=== PATIENT | female | born 1945 | race Caucasian/White ===

== ENCOUNTER 2023-02-14 13:44 | Emergency (ER) | payer MEDICARE, SELFPAY ==
[2023-02-14] VITALS (9 sets, daily range): BP systolic 119–145; BP diastolic 70–84; PULSE 75–100; RESP 12–18; TEMP 36.5; O2SAT 91–98; BMI 32.3
[2023-02-14 14:57] LABS: Basophils % 0.2 %; Hematocrit 43.2 % (37.0-47.0); Hemoglobin 13.6 g/dL (11.5-15.3); Lymphocytes # 1.1 10^3/uL (0.8-4.8); Lymphocytes % 5.6 %; Mean Corpuscular HGB Conc 31.5 g/dL (30.0-36.0); Mean Corpuscular Hemoglobin 25.6 pg (28.0-34.0); Mean Corpuscular Volume 81.4 fl (81-99); Mean Platelet Volume 9.7 fL (7.4-10.4); Monocytes # 0.8 10^3/uL (0.2-0.9); Neutrophils # 17.35 10^3/uL (1.8-7.7); Neutrophils % 89.6 %; Nucleated Red Blood Cells % 0 %; Platelet Count 421 10^3/cmm (130-400); Red Blood Count 5.31 10^6/uL (4.1-5.3); Red Cell Distribution Width 15.2 % (12.1-15.1); White Blood Count 19.4 10^3/uL (4.0-10.0)
[2023-02-14 15:21] LABS: Alanine Aminotransferase 10 U/L (0-33); Albumin Level 3.7 g/dL (3.5-5.2); Alkaline Phosphatase 121 U/L (35-105); Anion Gap 18.5 (5-19); Aspartate Amino Transferase 21 U/L (0-32); Blood Urea Nitrogen 35 mg/dL (8-23); Calcium 9.5 mg/dL (8.5-10.5); Carbon Dioxide 32 mmol/L (22-29); Chloride 91 mmol/L (98-107); Globulin 3.6 g/dL (1.3-4.6); Glucose 132 mg/dL (65-115); Lipase 36 U/L (13-60); Osmolality Calculated 296 mOsm/kg (285-295); Potassium 3.5 mmol/L (3.5-5.1); Sodium 138 mmol/L (136-145); Total Bilirubin 0.9 mg/dL (0.15-1.2); Total Protein 7.3 g/dL (6.6-8.7)
--- NOTE | 2023-02-14 15:27 | W.ED.ABDPA2 ---
HPI - Abdominal Pain General: Chief Complaint: Nausea/Vomiting/Diarrhea Stated Complaint: n/v/constipation Time Seen by Provider: 02/14/23 15:27 History of Present Illness: Ms. Silva is a 78-year-old lady with history of back pain and history of back surgery as well as hypertension presenting to the emergency department for nausea, vomiting, decreased urine and stool output as well as abdominal pain. Onset of symptoms was subacute without known specific provoking factor. She has had numerous episodes of nonbloody emesis that has been dark brown and sometimes bright green. She has not been able to tolerate any p.o. intake including her medications. She notes intermittent sharp periumbilical and epigastric pain. Overall course of symptoms has worsened. Intensity is moderate to severe. No other specific changes in health, exacerbating, or alleviating factors identified. Onset (ago): day(s) Pain Consistency: intermittent Location: Epigastric and Periumbilical Severity: moderate Quality: sharp Radiation: none Migration to: no migration Exacerbating factors: eating and vomiting Relieving factors: nothing Associated Symptoms: Reports nausea, poor appetite and vomiting; Denies fever(s) Review of Systems General: Reports: 10 or more systems reviewed and unremarkable except in HPI and below Const: Denies: fever(s) GI: Reports: nausea and vomiting [facility] PFSH: Medical History (Updated 02/23/23 @ 00:01 by BHUPINDER Snow) Hypertension Surgical History (Updated 02/14/23 @ 15:45 by Roby Ash MD) History of back surgery Physical Exam Const: COMMON NORMALS: alert GENERAL APPEARANCE: cooperative and well developed HENMT: COMMON NORMALS: normocephalic and atraumatic HEAD & SCALP: normocephalic and atraumatic Eye: COMMON NORMALS: conjunctivae normal CONJUNCTIVA: Yes conjunctivae normal SCLERA: sclerae normal Neck/C-Spine: COMMON NORMALS: supple GENERAL: Yes trachea midline Resp: COMMON NORMALS: normal respiratory effort EFFORT & INSPECTION: Yes able to speak in complete sentences Cardio: COMMON NORMALS: regular rate and regular rhythm RATE: regular rate RHYTHM: regular rhythm GI: COMMON NORMALS: Soft to palpation PALPATION: Yes Soft to palpation, Yes Tenderness to palpation present (GI), No Guarding due to palpation present (GI) and No Rigid due to palpation Extremity: GENERAL: Yes normal exam except as noted and No edema Neuro: COMMON NORMALS: moves all extremities SENSORIUM/ORIENTATION: Yes alert and No Orientation impaired Psych: COMMON NORMALS: mental status grossly normal and Normal thought process present THOUGHT PROCESS: Normal thought process present Course Vital Signs: Vital signs: Vital Signs Temperature 97.7 F 02/14/23 14:10 Pulse Rate 74 02/15/23 18:43 Respiratory Rate 18 02/15/23 08:35 Blood Pressure 144/68 02/15/23 18:43 Pulse Oximetry 94 02/15/23 18:43 Oxygen Delivery Me thod 02/15/23 18:43 Oxygen Flow Rate 2 02/15/23 10:17 MDM - Abdominal Pain Medical Decision Making 78-year-old lady presenting with nausea and vomiting as well as abdominal pain in the context of recent surgery. She is nontoxic in appearance, she has abdominal tenderness though no evidence of acute surgical abdomen. Labs notable for leukocytosis, normal hemoglobin, elevated platelet count which is likely reactive. Metabolic panel with likely evidence of dehydration including elevated creatinine above baseline. Lactic acid is normal. Urinalysis with squamous epithelial contamination, likely not infected. COVID-negative. CT abdomen and pelvis notes moderate grade mid small bowel obstruction and pneumobilia with gallbladder wall thickening. No discrete stones are identified. Ultrasound concerns cholelithiasis with gallbladder wall thickening though somewhat intermediate in nature. During ED course patient treated with antiemetic, analgesia, IV fluids, empiric antibiotics. She requires further evaluation of pneumobilia and possible biliary abnormality/pathology that exceeds her capability as we do not have GI service or ERCP capability. NG tube placed. Patient excepted as transfer to [facility], plan callback with bed availability. The results of ED evaluation were discussed with the patient including plan for transfer due to requirement for level of care not available if discharged to prevent significant worsening/deterioration. Patient agreeable with plan. Discussed with hospitalist service who was agreeable to admit patient. Medical Records I reviewed the patient's medical records. Lab Data I reviewed the patient's lab results. 02/14/23 14:40 02/14/23 14:40 Labs/Radiology: Radiology Impressions Abdomen/Pelvis CT 02/14/23 15:50 IMPRESSION: Moderate grade mid small bowel obstruction etiology of which is unclear. However in view of the unexplained pneumobilia and thickened gallbladder wall the possibility of gallstone ileus should be considered. ADDENDUM: 02/14/23 0187 THIS REPORT CONTAINS FINDINGS THAT MAY BE CRITICAL TO PATIENT CARE. The findings were verbally communicated via telephone conference with Roby Ash at 5:29 PM CDT on 02/14/2023. The findings were acknowledged and understood. Gallbladder Ultrasound 02/14/23 17:32 IMPRESSION: 1. Cholelithiasis with gallbladder wall thickening to 4.7 mm, may reflect an evolving cholecystitis in the appropriate clinical setting, nuclear medicine HIDA scan could further evaluate this as clinically indicated. 2. Echogenic structures in the liver likely reflecting air density/pneumobilia as seen on recent CT scan. Chest X-Ray 02/14/23 20:15 IMPRESSION: 1. Enteric tube tip below the left diaphragm over the gastric bubble. 2. Bibasilar atelectasis. Laboratory Results WBC 13.4 10^3/uL (4.0-10.0) H 02/15/23 16:15 RBC 4.74 10^6/uL (4.1-5.3) 02/15/23 16:15 Hgb 12.5 g/dL (11.5-15.3) 02/15/23 16:15 Hct 40.0 % (37.0-47.0) 02/15/23 16:15 MCV 84.4 fl (81-99) 02/15/23 16:15 MCH 26.4 pg (28.0-34.0) L 02/15/23 16:15 MCHC 31.3 g/dL (30.0-36.0) 02/15/23 16:15 RDW 15.3 % (12.1-15.1) H 02/15/23 16:15 Plt Count 289 10^3/cmm (130-400) D 02/15/23 16:15 MPV 9.9 fL (7.4-10.4) 02/15/23 16:15 Neut % (Auto) 84.3 % 02/15/23 16:15 Lymph % (Auto) 6.9 % 02/15/23 16:15 Leon % (Auto) 7.1 % 02/15/23 16:15 Eos % (Auto) 1.0 % 02/15/23 16:15 Baso % (Auto) 0.4 % 02/15/23 16:15 Neut # (Auto) 11.33 10^3/uL (1.8-7.7) H 02/15/23 16:15 Lymph # (Auto) 0.9 10^3/uL (0.8-4.8) 02/15/23 16:15 Leon # (Auto) 1.0 10^3/uL (0.2-0.9) H 02/15/23 16:15 Eos # (Auto) 0.1 10^3/uL (0.0-0.8) 02/15/23 16:15 Baso # (Auto) 0.1 10^3/uL (0.0-0.1) 02/15/23 16:15 Nucleated RBC % (auto) 0 % 02/15/23 16:15 Nucleated RBCs # 0.0 /100WBC 02/15/23 16:15 Sodium 141 mmol/L (136-145) 02/15/23 16:15 Potassium 3.3 mmol/L (3.5-5.1) L 02/15/23 16:15 Chloride 99 mmol/L (98-107) 02/15/23 16:15 Carbon Dioxide 30 mmol/L (22-29) H 02/15/23 16:15 Anion Gap 15.3 (5-19) 02/15/23 16:15 BUN 49 mg/dL (8-23) H 02/15/23 16:15 Creatinine 2.4 mg/dL (0.5-0.9) H 02/15/23 16:15 GFR Calculation Not Reportable 02/15/23 16:15 Glucose 108 mg/dL (65-115) 02/15/23 16:15 Calculated Osmolality 306 mOsm/kg (285-295) H 02/15/23 16:15 Lactic Acid 1.2 mmol/L (0.5-2.2) 02/14/23 19:00 Calcium 8.1 mg/dL (8.5-10.5) L 02/15/23 16:15 Total Bilirubin 0.9 mg/dL (0.15-1.2) 02/14/23 14:40 AST 21 U/L (0-32) 02/14/23 14:40 ALT 10 U/L (0-33) 02/14/23 14:40 Alkaline Phosphatase 121 U/L (35-105) H 02/14/23 14:40 Total Protein 7.3 g/dL (6.6-8.7) 02/14/23 14:40 Albumin 3.7 g/dL (3.5-5.2) 02/14/23 14:40 Globulin 3.6 g/dL (1.3-4.6) 02/14/23 14:40 Lipase 36 U/L (13-60) 02/14/23 14:40 Urine Color Yellow (Yellow) 02/14/23 16:45 Urine Appearance Cloudy (CLEAR) A 02/14/23 16:45 Urine pH 5 (5-7) 02/14/23 16:45 Ur Specific Cameron 1.030 (1.005-1.030) 02/14/23 16:45 Urine Protein 2+ (Negative) H 02/14/23 16:45 Urine Glucose (UA) Norm (Normal) 02/14/23 16:45 Urine Ketones 1+ (Negative) H 02/14/23 16:45 Urine Blood Trace (Negative) H 02/14/23 16:45 Urine Nitrate Negative (Negative) 02/14/23 16:45 Urine Bilirubin Neg (Negative) 02/14/23 16:45 Urine Urobilinogen Norm mg/dL (Negative) 02/14/23 16:45 Ur Leukocyte Esterase 2+ (Negative) H 02/14/23 16:45 Urine RBC 0-4 /hpf (0-2) H 02/14/23 16:45 Urine WBC 25-40 /hpf (0-5) H 02/14/23 16:45 Ur Squamous Epith Cells 10-15 /hpf (0-5) H 02/14/23 16:45 Amorphous Sediment Not Reportable 02/14/23 16:45 Urine Bacteria Trace /hpf (NONE) 02/14/23 16:45 Hyaline Casts 10-15 /lpf H 02/14/23 16:45 SARS-CoV-2 Ag (Rapid) negative (Negative) 02/14/23 18:30 Discharge Plan Discharge Patient Disposition: Xfer Short-Term Hosp Clinical Impression: SBO (small bowel obstruction), Pneumobilia, PARKER (acute kidney injury) Condition: Stable Referrals: Mj Jimenes DO [Primary Care Provider] - Coding Level of Care Code ED Podiatric Foot And Ankle Specialist for Chg Fwd
--- NOTE | 2023-02-14 15:33 | PC.NURSE ---
in room with patient and this nurse.
--- NOTE | 2023-02-14 15:45 | PC.PHAR ---
PT STATES SHE TAKES CARE OF HER OWN MEDICATIONS-EXT MED HISTORY SHOWS BYSTOLIC 20MG DAILY LAST FILLED 10/11/22 90D/S-ROGELIO STATES THIS RX ON 02/12/23 PT STATES STILL TAKING
--- NOTE | 2023-02-14 15:50 | CTR_ITS ---
PROCEDURE INFORMATION: Exam: CT Abdomen And Pelvis Without Contrast Exam date and time: 02/14/2023 4:32 PM Age: 78 years old Clinical indication: Abdominal pain; Generalized; Additional info: N/v, abd pain, chet TECHNIQUE: Imaging protocol: Computed tomography of the abdomen and pelvis without contrast. Radiation optimization: All CT scans at this facility use at least one of these dose optimization techniques: automated exposure control; mA and/or kV adjustment per patient size (includes targeted exams where dose is matched to clinical indication); or iterative reconstruction. REPORTING DATA: Count of CT and Cardiac NM exams in prior 12 months: This patient has received 0 known CTs and 0 known cardiac nuclear medicine studies in the 12 months prior to the current study. COMPARISON: No relevant prior studies available. RADIATION DOSE METRICS: Total DLP (mGy-cm): 711.84 FINDINGS: Lungs: Mild interstitial lung changes and minor atelectatic changes at the lung bases. Liver: Normal. No mass. Gallbladder and bile ducts: Gallbladder is contracted with ill-defined thickening of the gallbladder wall and a small amount of air within the gallbladder lumen. In addition there is mild-moderate amount of pneumobilia within the biliary tree. Constellation of findings raises concern for gallstone ileus although an obstructing calcified gallstone cannot be identified where the transition point appears to be located. Pancreas: Normal. No ductal dilation. Spleen: Normal. No splenomegaly. Adrenal glands: Normal. No mass. Kidneys and ureters: Normal. No hydronephrosis. Stomach and bowel: There is evidence of a moderate grade mid small bowel obstruction etiology of which is unclear. Transition point difficult to identify with confidence but likely resides near the midline in the lower abdomen below the level of the umbilicus. No evidence of small bowel volvulus. No obstructing calcified gallstone detected. Scattered diverticula large bowel without evidence of diverticulitis. Appendix: No evidence of appendicitis. Intraperitoneal space: See Stomach and bowel finding. Vasculature: Unremarkable. No abdominal aortic aneurysm. Lymph nodes: Unremarkable. No enlarged lymph nodes. Urinary bladder: Unremarkable as visualized. Reproductive: Uterus has been removed. Bones/joints: Unremarkable. No acute fracture. Soft tissues: Unremarkable. CT/CT abdomen pelvis wo con [id number] IMPRESSION: Moderate grade mid small bowel obstruction etiology of which is unclear. However in view of the unexplained pneumobilia and thickened gallbladder wall the possibility of gallstone ileus should be considered.
[2023-02-14] MEDS: ondansetron 2 mg/ML SDV 2 mL 4 MG IVP (15:59)
[2023-02-14] MEDS: morphine 4 mg/mL SDV 1 mL IVP ×2 (15:59→20:08)
[2023-02-14] MEDS: sodium chloride 0.9% 1,000 ML 999 ML IV (15:59)
--- NOTE | 2023-02-14 17:32 | USR_ITS ---
PROCEDURE INFORMATION: Exam: US Abdomen, Limited; Right Upper Quadrant Exam date and time: 02/14/2023 5:48 PM Age: 78 years old Clinical indication: Abdominal pain; Patient HX: N+v, decrease urine ouput, decreased stool output, periumbilical pain x 5 days. ; Additional info: Pneumobilia on CT TECHNIQUE: Imaging protocol: Real time ultrasound of the abdomen with image documentation. Limited exam focused on the right upper quadrant. COMPARISON: CT abdomen pelvis wo con [id number] 02/14/2023 4:32 PM FINDINGS: Liver: Echogenic structures in the liver likely reflecting air density/pneumobilia as seen on recent CT scan. Gallbladder: Cholelithiasis with gallbladder wall thickening to 4.7 mm, may reflect an evolving cholecystitis in the appropriate clinical setting, nuclear medicine HIDA scan could further evaluate this as clinically indicated. Biliary ducts: Normal. No stones. No dilation. Pancreas: Visualized pancreas is unremarkable. Right kidney: Normal. No mass. No hydronephrosis. US/US gall bladder [id number] IMPRESSION: 1. Cholelithiasis with gallbladder wall thickening to 4.7 mm, may reflect an evolving cholecystitis in the appropriate clinical setting, nuclear medicine HIDA scan could further evaluate this as clinically indicated. 2. Echogenic structures in the liver likely reflecting air density/pneumobilia as seen on recent CT scan.
[2023-02-14 17:33] LABS: Blood Urine Trace (Negative); Glucose Urine UA Norm (Normal); Ketones Urine 1+ (Negative); Nitrate Urine Negative (Negative); Protein Urine 2+ (Negative); Urine Appearance Cloudy (CLEAR); Urine Color Yellow (Yellow); pH Urine 5 (5-7)
[2023-02-14 17:34] LABS: Add Urine Microscopic? YES; Bilirubin Urine Neg (Negative); Leukocyte Esterase Urine 2+ (Negative); Urobilinogen Urine Norm (Negative)
[2023-02-14 17:35] LABS: Bacteria Urine TRACE /hpf; RBC Urine 0-4 /hpf (0-2); WBC Urine 25-40 /hpf (0-5)
[2023-02-14 17:36] LABS: Add Urine Culture? Yes
[2023-02-14 19:20] LABS: SARS Covid-2 Antigen negative (Negative)
[2023-02-14 19:35] LABS: Lactic Sepsis W/Reflex 1.2 mmol/L (0.5-2.2)
[2023-02-14] MEDS: piperacillin-tazobactam 4.5 GM in sodium chloride 0.9% (plus) 50 ML IV (19:38)
--- NOTE | 2023-02-14 20:15 | XRR_ITS ---
PROCEDURE INFORMATION: Exam: XR Chest Exam date and time: 02/14/2023 8:29 PM Age: 78 years old Clinical indication: Device placement; Ng tube; Additional info: Ng tube placement TECHNIQUE: Imaging protocol: Radiologic exam of the chest. Views: 1 view. COMPARISON: CT abdomen pelvis wo con [id number] 02/14/2023 4:32 PM FINDINGS: Tubes, catheters and devices: Enteric tube tip below the left diaphragm over the gastric bubble. Lungs: Bibasilar atelectasis. Pleural spaces: Unremarkable. No pleural effusion. No pneumothorax. Heart/Mediastinum: Unremarkable. No cardiomegaly. Bones/joints: Unremarkable. XR/XR chest 1V portable [id number] IMPRESSION: 1. Enteric tube tip below the left diaphragm over the gastric bubble. 2. Bibasilar atelectasis.
[2023-02-15] VITALS (11 sets, daily range): BP systolic 116–148; BP diastolic 52–87; PULSE 68–82; RESP 12–18; O2SAT 93–95
[2023-02-15] MEDS: sodium chloride 0.9% 1,000 ML 125 ML IV (01:27)
[2023-02-15] MEDS: morphine 4 mg/mL SDV 1 mL IVP ×3 (01:33→19:13)
[2023-02-15] MEDS: piperacillin-tazobactam 4.5 GM in sodium chloride 0.9% (plus) 50 ML IV ×3 (04:15→20:28)
--- NOTE | 2023-02-15 08:30 | DCPLANNER ---
called [facility] to see about an ete for a bed. I spoke with Enedelia at the transfer center and she advised they are waiting on some discharges today around 12-1pm.
--- NOTE | 2023-02-15 12:57 | DCPLANNER ---
CALLED [facility] (LALITHA) STILL NO BED AT THIS TIME.
--- NOTE | 2023-02-15 15:49 | DCPLANNER ---
[facility] ([facility])- I CALLED FOR AN UPDATE ON BED AT [facility]. LALITHA WITH [facility] ADVISED STILL WAITING ON A MED/TELE BED FOR A DISCHARGE. SHOULD KNOW SOMETHING AFTER THE [facility] MEETING AROUND 4PM.
[2023-02-15 16:40] LABS: Basophils # 0.1 10^3/uL (0.0-0.1); Basophils % 0.4 %; Eosinophils # 0.1 10^3/uL (0.0-0.8); Hemoglobin 12.5 g/dL (11.5-15.3); Lymphocytes # 0.9 10^3/uL (0.8-4.8); Lymphocytes % 6.9 %; Mean Corpuscular HGB Conc 31.3 g/dL (30.0-36.0); Mean Corpuscular Hemoglobin 26.4 pg (28.0-34.0); Mean Corpuscular Volume 84.4 fl (81-99); Mean Platelet Volume 9.9 fL (7.4-10.4); Monocytes % 7.1 %; Neutrophils # 11.33 10^3/uL (1.8-7.7); Neutrophils % 84.3 %; Nucleated Red Blood Cells % 0 %; Platelet Count 289 10^3/cmm (130-400); Red Blood Count 4.74 10^6/uL (4.1-5.3); Red Cell Distribution Width 15.3 % (12.1-15.1); White Blood Count 13.4 10^3/uL (4.0-10.0)
[2023-02-15 16:55] LABS: Anion Gap 15.3 (5-19); Blood Urea Nitrogen 49 mg/dL (8-23); Calcium 8.1 mg/dL (8.5-10.5); Carbon Dioxide 30 mmol/L (22-29); Chloride 99 mmol/L (98-107); Glucose 108 mg/dL (65-115); Osmolality Calculated 306 mOsm/kg (285-295); Potassium 3.3 mmol/L (3.5-5.1); Sodium 141 mmol/L (136-145)
[2023-02-15] MEDS: lidocaine 1% 5 ML in potassium chloride premix 100 ML 26.25 ML IV (17:36)
== END 2023-02-15 20:52 | disposition short-term general hospital (02) ==
PROVIDERS: Physician Assistant; Emergency Provider Emergency Medicine; PCP Electrodiagnostic Medicine
DX: N17.9 Acute kidney failure, unspecified (principal); K56.609 Unspecified intestinal obstruction, unspecified as to partial versus complete obstruction; Z20.822 Contact with and (suspected) exposure to COVID-19; I10 Essential (primary) hypertension
CPT/HCPCS: 36415; 71045; 74176; 76705; 80048; 80053; 81001; 83605; 83690; 85025; 87040; 87086; 87426; 96365; 96366; 96375; 96376; 99285; J2270; J2405; J2543; J3480; J7030

== ENCOUNTER 2023-04-09 14:12 | Oncology outpatient (recurring) (ONCR) | payer MEDICARE, SELFPAY | END 2023-04-24 23:59 | disposition home or self-care (01) | LOC: ONCMED 14:16 | PROVIDERS: PCP Electrodiagnostic Medicine; Visit Provider Internal Medicine Medical Oncology | DX: C18.2 Malignant neoplasm of ascending colon (principal); Z90.49 Acquired absence of other specified parts of digestive tract; Z93.4 Other artificial openings of gastrointestinal tract status | CPT/HCPCS: 99205 ==

== ENCOUNTER 2023-04-26 16:00 | Outpatient (CLI) | payer MEDICARE, SELFPAY ==
--- NOTE | 2023-04-26 16:47 | CTR_ITS ---
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 241image(s) are provided. Radiation optimization: All CT scans at this facility use at least one of these dose optimization techniques: automated exposure control; mA and/or kV adjustment per patient size (includes targeted exams where dose is matched to clinical indication); or iterative reconstruction. Other technique: Axial images are available with sagittal and coronal reconstruction views. Automated dose exposure control is utilized. The DLP is 208.12. REPORTING DATA: Count of CT and Cardiac NM exams in prior 12 months: This patient has received [address] and 0 known cardiac nuclear medicine studies in the 12 months prior to the current study. COMPARISON: 1. CR XR chest 1V portable [id number] 02/14/2023 8:[address] abdomen pelvis wo con [id number] 02/14/2023 4:32 PM RADIATION DOSE METRICS: Total DLP (mGy-cm): 208.12 FINDINGS: Thyroid: There is some diffuse thyroid enlargement and heterogeneous appearance overall. Trachea: The central airways are patent. Lungs: There is some subsegmental atelectasis versus post inflammatory reticulonodular scarring demonstrated.No lobar consolidation is appreciated. There is some associated bronchiolectasis. There is a 2 x 3 mm ground-glass density although similar at the lateral subpleural aspect of the left lower lobe series 4, image 45. There is some punctate ground-glass attenuation of approximately 2 x 3 mm left apex series 4, image 13. Pleural spaces: No pneumothorax or pleural effusion is appreciated. Heart: No significant pericardial fluid collection is appreciated. Coronary arteries: There appear to be some coronary arterial calcifications. Lymph nodes: There are some borderline upper abdominal lymph nodes similar overall. There are subcentimeter predominant mediastinal and hilar lymph nodes overall present. Vasculature: No aneurysmal dilatation is appreciated. Stomach and bowel: There is a small sliding-type hiatal hernia demonstrated with slight gastroesophageal fold thickening. Intraperitoneal space: There is a similar otherwise interval appearance of the included intraperitoneal space, upper abdominal structures. Bones/joints: Osseous alignment is maintained.No displaced fracture or dislocation is appreciated. There is some thoracic spondylosis present. There are chronic degenerative changes of the shoulders demonstrated. There is some flowing bulky thoracic osteophytosis demonstrated overall. Soft tissues: No radiopaque foreign body or subcutaneous emphysema is appreciated. Other findings: There is some motion artifact present. No other significant interval changes are appreciated. CT/CT chest wo con [id number] IMPRESSION: 1. No parenchymal mass or abnormal mediastinal hilar lymph node enlargement is appreciated to suggest metastatic disease. There are however multifocal areas of parenchymal scarring with bronchiolectasis and reticulonodular type appearance 1 of which appears similar left lower lobe with others not included. Would recommend comparison to any previous older CT chest study if clinically available. If none are available then would recommend short-term 3 to 6 month follow-up as per Fleischner society guidelines. 2. There is some enlarged and heterogeneous overall nodular type appearance of the thyroid gland. Thyroid ultrasound is recommended.
== END 2023-04-26 16:01 | disposition home or self-care (01) ==
LOC: RAD 16:02
PROVIDERS: PCP Electrodiagnostic Medicine; Visit Provider Internal Medicine Medical Oncology
DX: C18.2 Malignant neoplasm of ascending colon (principal); J47.9 Bronchiectasis, uncomplicated; E04.1 Nontoxic single thyroid nodule; Z90.49 Acquired absence of other specified parts of digestive tract
CPT/HCPCS: 71250

== ENCOUNTER 2023-05-06 13:31 | Oncology outpatient (recurring) (ONCR) | payer MEDICARE, SELFPAY ==
[2023-05-06 13:49] VITALS: BP 179/98; PULSE 75; RESP 16; TEMP 36.6; O2SAT 95
--- NOTE | 2023-05-06 13:56 | PC.NURSE ---
lab drawn via RAC x2 attempt, tolerated well.
[2023-05-06 14:01] LABS: Basophils % 0.4 %; Eosinophils # 0.1 10^3/uL (0.0-0.8); Eosinophils % 1.5 %; Hematocrit 35.3 % (37.0-47.0); Hemoglobin 11.2 g/dL (11.5-15.3); Lymphocytes # 1.7 10^3/uL (0.8-4.8); Lymphocytes % 23.2 %; Mean Corpuscular HGB Conc 31.7 g/dL (30.0-36.0); Mean Corpuscular Hemoglobin 27.3 pg (28.0-34.0); Mean Corpuscular Volume 86.1 fl (81-99); Mean Platelet Volume 9.7 fL (7.4-10.4); Monocytes # 0.4 10^3/uL (0.2-0.9); Neutrophils # 4.93 10^3/uL (1.8-7.7); Neutrophils % 68.3 %; Nucleated Red Blood Cells % 0 %; Platelet Count 277 10^3/cmm (130-400); Red Cell Distribution Width 16.6 % (12.1-15.1); White Blood Count 7.2 10^3/uL (4.0-10.0)
[2023-05-06 14:20] LABS: Alanine Aminotransferase 11 U/L (0-33); Albumin Level 3.8 g/dL (3.5-5.2); Alkaline Phosphatase 149 U/L (35-105); Anion Gap 15.3 (5-19); Aspartate Amino Transferase 24 U/L (0-32); Blood Urea Nitrogen 22 mg/dL (8-23); Calcium 9.4 mg/dL (8.5-10.5); Carbon Dioxide 22 mmol/L (22-29); Chloride 106 mmol/L (98-107); Globulin 3.8 g/dL (1.3-4.6); Glucose 90 mg/dL (65-115); Osmolality Calculated 291 mOsm/kg (285-295); Potassium 4.3 mmol/L (3.5-5.1); Sodium 139 mmol/L (136-145); Total Bilirubin 0.6 mg/dL (0.15-1.2); Total Protein 7.6 g/dL (6.6-8.7)
[2023-05-06 14:45] LABS: Carcinoembryonic Antigen 1.2 ng/mL (0.0-4.7)
[2023-05-06 15:11] LABS: Ferritin 42 ng/mL (15-150); Iron 43 ug/dL (37-145); Percent Saturation 14.3 % (20-50); Total Iron Binding Capacity 299 mcg/dl; Unsaturated Iron Binding 256 ug/dL (112-347)
== END 2023-05-24 23:59 | disposition home or self-care (01) ==
PROVIDERS: PCP Electrodiagnostic Medicine; Visit Provider Internal Medicine Medical Oncology
DX: C18.2 Malignant neoplasm of ascending colon (principal); D64.9 Anemia, unspecified; Z53.9 Procedure and treatment not carried out, unspecified reason
CPT/HCPCS: 36415; 80053; 82378; 82728; 83540; 83550; 85025

== ENCOUNTER 2023-10-28 13:15 | Outpatient (CLI) | payer MEDICARE, SELFPAY ==
--- NOTE | 2023-10-28 13:30 | CT_ITS ---
WS: [id number] CT chest wo con [id number] HISTORY: 6 month follow up per last CT on 04/26/23 TECHNIQUE: Axial imaging performed through the thorax. Coronal and sagittal reformats are submitted. All CT scans at [facility] use at least one of these dose optimization techniques: automated exposure control; mA and/or kV adjustment per patient size (includes targeted exams where dose is mat ched to clinical indication); or iterative reconstruction. CONTRAST: None DLP: 325.71 mGy.cm COMPARISON: 04/26/2023 Lungs and central airway: Very mild interstitial thickening at the lung bases with areas of chronic a telectasis in the RIGHT middle lobe and at the lingula. Bronchiectasis in the posterior LEFT lower lo be with adjacent atelectasis and groundglass attenuation. No mass or nodule. Pleura: Normal. No pleural effusion. Heart and pericardium: Mild cardiomegaly Mediastinum and [place]: No adenopathy. Vessels: Normal size aortic and pulmonary artery. No coronary artery calcifications. Chest wall and lower neck: Mildly enlarged nodular thyroid. Similar to the prior study. Upper abdomen: Normal. Osseous structures: Moderate degenerative changes throughout the thoracic spine. Curvature and scolio sis. IMPRESSION: 1. Very mild bronchiectasis in the LEFT lower lobe with associated interstitial thickening and reticu lation. Similar to the prior study of 04/26/2023. 2. No suspicious nodules or masses. 3. Mild cardiomegaly.
== END 2023-10-28 13:16 | disposition home or self-care (01) ==
LOC: RAD 13:15
PROVIDERS: PCP Electrodiagnostic Medicine; Visit Provider Internal Medicine Medical Oncology
DX: R93.89 Abnormal findings on diagnostic imaging of other specified body structures (principal); J47.9 Bronchiectasis, uncomplicated; I51.7 Cardiomegaly
CPT/HCPCS: 71250

== ENCOUNTER 2023-11-04 12:42 | Oncology outpatient (recurring) (ONCR) | payer MEDICARE, SELFPAY ==
[2023-11-04 14:24] LABS: Basophils % 0.4 %; Eosinophils # 0.2 10^3/uL (0.0-0.8); Eosinophils % 2.2 %; Hematocrit 40.1 % (36-47); Lymphocytes # 1.9 10^3/uL (0.8-4.8); Lymphocytes % 27.2 %; Mean Corpuscular HGB Conc 32.7 g/dL (30-55); Mean Platelet Volume 9.9 fL (7.4-10.4); Monocytes # 0.4 10^3/uL (0.2-0.9); Monocytes % 5.9 %; Neutrophils # 4.57 10^3/uL (1.8-7.7); Nucleated Red Blood Cells % 0 %; Platelet Count 221 10^3/cmm (157-399); Red Blood Count 4.36 10^6/uL (3.85-5.65); Red Cell Distribution Width 13.3 % (12.1-15.1); White Blood Count 7.14 10^3/uL (3.29-11.43)
[2023-11-04 14:50] LABS: Carcinoembryonic Antigen 1.4 ng/mL (0.0-4.7); Thyroid Stimulating Hormone 1.55 uIU/mL (0.27-4.20)
[2023-11-04 15:01] LABS: Alanine Aminotransferase 16 U/L (0-33); Albumin Level 4.1 g/dL (3.5-5.2); Alkaline Phosphatase 149 U/L (35-105); Anion Gap 13.3 (5-19); Aspartate Amino Transferase 23 U/L (0-32); Blood Urea Nitrogen 30 mg/dL (8-23); Calcium 9.9 mg/dL (8.5-10.5); Carbon Dioxide 27 mmol/L (22-29); Chloride 104 mmol/L (98-107); Globulin 3.9 g/dL (1.3-4.6); Glucose 106 mg/dL (65-115); Osmolality Calculated 297 mOsm/kg (285-295); Potassium 4.3 mmol/L (3.5-5.1); Sodium 140 mmol/L (136-145); Total Bilirubin 0.6 mg/dL (0.15-1.2)
== END 2023-11-24 23:59 | disposition home or self-care (01) ==
PROVIDERS: Nurse Practitioner Family; PCP Electrodiagnostic Medicine; Visit Provider Internal Medicine Medical Oncology
DX: C18.2 Malignant neoplasm of ascending colon (principal); E01.0 Iodine-deficiency related diffuse (endemic) goiter; Z79.899 Other long term (current) drug therapy
CPT/HCPCS: 36415; 80053; 82378; 84443; 85025; 99214

== ENCOUNTER 2024-04-30 13:08 | Outpatient (CLI) | payer MEDICARE, SELFPAY ==
--- NOTE | 2024-04-30 14:00 | CTR_ITS ---
PROCEDURE INFORMATION: Exam: CT Chest With Contrast; Diagnostic Exam date and time: 04/30/2024 2:39 PM Age: 79 years old Clinical indication: Condition or disease; Other: Colon cancer; Prior surgery; Surgery date: 6+ months; Surgery type: Colon, hyst; Additional info: Surveillance, please schedule before 05/05/24 follow-up appointment with TECHNIQUE: Imaging protocol: Diagnostic computed tomography of the chest with contrast. Radiation optimization: All CT scans at this facility use at least one of these dose optimization techniques: automated exposure control; mA and/or kV adjustment per patient size (includes targeted exams where dose is matched to clinical indication); or iterative reconstruction. Contrast material: OMNI 350; Contrast volume: 100 ml; Contrast route: INTRAVENOUS (IV); COMPARISON: CT chest [facility] [id number] 10/28/2023 1:51 PM RADIATION DOSE METRICS: Total DLP (mGy-cm): 878.84 FINDINGS: Thyroid: Multiple small hypoattenuating thyroid nodules, measuring up to 1.4 cm, unchanged. Lungs: Stable to mildly decreased atelectasis and/or scarring in the left lung base. Stable small triangular shaped perifissural collection in the anteromedial right middle lobe. No new or suspicious pulmonary nodules or masses. Pleural spaces: No significant pleural effusion. No pneumothorax. Heart: Heart is normal in size. No pericardial effusion. Lymph nodes: No pathologically enlarged lymphadenopathy. Vasculature: Thoracic aorta is within normal limits. Bones/joints: Multilevel thoracic spondylosis. Chronic degenerative changes about the right shoulder. No acute osseous findings. Soft tissues: Visualized superficial soft tissues are within normal limits. COMMENTS: Consistent with the [employer]'s Incidental Findings Committee white paper (J Am Mateo Radiol 2015): In patients aged 35 years and older with an incidental thyroid nodule equal to or greater than 1.[address], MRI or extrathyroidal US, further evaluation with dedicated thyroid US is recommended for patients with normal life expectancy and without comorbidities. For smaller nodules without suspicious features, no further evaluation or follow up is recommended. PROCEDURE INFORMATION: Exam: CT Abdomen And Pelvis With Contrast Exam date and time: 04/30/2024 2:39 PM Age: 79 years old Clinical indication: Condition or disease; Other: Colon cancer; Prior surgery; Surgery date: 6+ months; Surgery type: Colon, hyst; Additional info: Surveillance, please schedule before 05/05/24 follow-up appointment with TECHNIQUE: Imaging protocol: Computed tomography of the abdomen and pelvis with contrast. Radiation optimization: All CT scans at this facility use at least one of these dose optimization techniques: automated exposure control; mA and/or kV adjustment per patient size (includes targeted exams where dose is matched to clinical indication); or iterative reconstruction. Contrast material: OMNI 350; Contrast volume: 100 ml; Contrast route: INTRAVENOUS (IV); COMPARISON: CT abdomen pelvis wo con [id number] 02/14/2023 4:32 PM RADIATION DOSE METRICS: Total DLP (mGy-cm): 878.84 FINDINGS: Liver: The liver is unremarkable. Gallbladder and bile ducts: Gallbladder is small in size. Mild extrahepatic biliary dilation. Common bile duct measures up to 1.0 cm in diameter. Pancreas: Mild atrophy of the pancreas. Hypoattenuating lesion in the head of the pancreas, measuring up to 1.7 cm. Spleen: The spleen is unremarkable. Adrenal glands: The adrenal glands are unremarkable. Kidneys and ureters: Kidneys are normal. No hydronephrosis or nephrolithiasis. Stomach and bowel: Nonobstructive bowel-gas pattern. Minimal scattered colonic diverticulosis. No CT evidence of acute diverticulitis. Appendix: No evidence of acute appendicitis. Intraperitoneal space: No significant free fluid in the abdomen or pelvis. No extraluminal free air. Vasculature: Mild scattered calcific disease of the abdominal aorta and its major branches. No abdominal aortic aneurysm. Lymph nodes: Multiple pathologically enlarged retroperitoneal and para-aortic lymph nodes, overall slightly increased in size and conspicuity compared to 02/14/2023. A para-aortic lymph node at the level of the kidneys now measures 2.3 x 2.2 x 1.3 cm (coronal series 10, image 39; axial series 5, image 31). This previously measured 1.6 x 1.6 x 0.8 cm on 02/14/2023. Urinary bladder: Urinary bladder is within normal limits. Reproductive: Uterus is absent. Bones/joints: Multilevel thoracic spondylosis. No acute osseous findings. Soft tissues: Chronic changes of the ventral soft tissues consistent with prior laparotomy. [id number] post incisional diastasis of the rectus abdominis muscles. CT/CT chest abdpel w/*[id number] IMPRESSION: No evidence of metastatic disease in the chest. IMPRESSION: 1. Multiple pathologically enlarged retroperitoneal and para-aortic lymph nodes, overall slightly increased in size and conspicuity compared to 02/14/2023, as above. This is likely indicative of progression of chandler metastatic disease. 2. Hypoattenuating lesion in the head of the pancreas, measuring up to 1.7 cm. This might represent focal dilation of the distal tip of the pancreatic duct versus a small IPMN, possibly main branch. Recommend further evaluation with nonemergent noncontrast MRCP. 3. Gallbladder is small in size. Mild extrahepatic biliary dilation. Common bile duct measures up to 1.0 cm in diameter.
[2024-04-30] MEDS: iohexol 350 mg/mL 500 mL Btl (per mL) PO (14:31)
[2024-04-30] MEDS: iohexol 350 mg/mL 500 mL Btl (per mL) IV (14:55)
== END 2024-04-30 13:09 | disposition home or self-care (01) ==
PROVIDERS: PCP Electrodiagnostic Medicine; Visit Provider Nurse Practitioner Family
DX: C18.2 Malignant neoplasm of ascending colon (principal); R59.0 Localized enlarged lymph nodes; K86.89 Other specified diseases of pancreas; M47.814 Spondylosis without myelopathy or radiculopathy, thoracic region; Z98.890 Other specified postprocedural states
CPT/HCPCS: 71260; 74177; Q9967

== ENCOUNTER 2024-05-05 13:09 | Oncology outpatient (recurring) (ONCR) | payer MEDICARE, SELFPAY ==
[2024-05-05 13:36] LABS: Basophils % 0.4 %; Eosinophils # 0.1 10^3/uL (0.0-0.8); Eosinophils % 1.6 %; Hematocrit 41.4 % (36-47); Lymphocytes # 2.2 10^3/uL (0.8-4.8); Lymphocytes % 28.3 %; Mean Corpuscular HGB Conc 33.3 g/dL (30-55); Mean Corpuscular Hemoglobin 29.9 pg (27-33); Mean Corpuscular Volume 89.6 fl (85-98); Mean Platelet Volume 10.3 fL (7.4-10.4); Monocytes # 0.5 10^3/uL (0.2-0.9); Monocytes % 5.9 %; Neutrophils # 4.82 10^3/uL (1.8-7.7); Neutrophils % 63.5 %; Nucleated Red Blood Cells % 0 %; Platelet Count 219 10^3/cmm (157-399); Red Blood Count 4.62 10^6/uL (3.85-5.65); Red Cell Distribution Width 12.7 % (12.1-15.1); White Blood Count 7.59 10^3/uL (3.29-11.43)
[2024-05-05 14:10] LABS: Carcinoembryonic Antigen 1.6 ng/mL (0.0-4.7)
[2024-05-05 14:21] LABS: Alanine Aminotransferase 18 U/L (0-33); Albumin Level 3.9 g/dL (3.5-5.2); Alkaline Phosphatase 153 U/L (35-105); Aspartate Amino Transferase 23 U/L (0-32); Blood Urea Nitrogen 25 mg/dL (8-23); Calcium 9.2 mg/dL (8.5-10.5); Carbon Dioxide 23 mmol/L (22-29); Chloride 103 mmol/L (98-107); Globulin 3.9 g/dL (1.3-4.6); Glucose 95 mg/dL (65-115); Osmolality Calculated 288 mOsm/kg (285-295); Sodium 137 mmol/L (136-145); Total Bilirubin 0.6 mg/dL (0.15-1.2); Total Protein 7.8 g/dL (6.6-8.7)
[2024-05-05 14:23] LABS: Anion Gap 15.3 (5-19); Potassium 4.3 mmol/L (3.5-5.1)
== END 2024-05-24 23:59 | disposition home or self-care (01) ==
PROVIDERS: Nurse Practitioner Family; PCP Electrodiagnostic Medicine; Visit Provider Internal Medicine Medical Oncology
DX: C18.2 Malignant neoplasm of ascending colon (principal)
CPT/HCPCS: 36415; 80053; 82378; 85025; 99213

== ENCOUNTER 2024-05-19 13:00 | Outpatient (CLI) | payer MEDICARE, SELFPAY ==
--- NOTE | 2024-05-19 13:00 | PETR_ITS ---
PROCEDURE INFORMATION: Exam: PET/CT Skull Base to Mid-thigh Exam date and time: 05/19/2024 1:30 PM Age: 79 years old Clinical indication: Condition or disease; Primary cancer: Malignant neoplasm of ascending colon; Prior surgery; Surgery date: 6+ months; Surgery type: Colon, hyst; Additional info: Malignant neoplasmof ascending colon LABS AND CLINICAL REPORTS: Glucose: 95 mg/dl Treatment strategy for malignancy (PET staging): Initial Staging (PI) TECHNIQUE: Imaging protocol: Following at least four-hour fasting and following the injection of radiopharmaceutical, low dose CT images were obtained. Then, PET images were obtained. Attenuation corrected images were constructed using the CT scan. Fused images of PET and CT were reviewed. The standardized uptake values (SUV) reported below are maximum values within a region of interest, expressed in gm/ml. Exam includes orbital meatal line to mid-thigh. Radiopharmaceutical: 12.2 mCi F-18 FDG (Fluorodeoxyglucose), IV. Time of imaging post radiopharmaceutical administration: 44 minutes Injection site: Right hand COMPARISON: 1. CT abdomen pelvis wo con [id number] 02/14/2023 4:[address] chest abdpel w/*[id number] 04/30/2024 2:39 PM FINDINGS: Brain: Visualized brain has normal physiologic uptake. Pharynx: No abnormal uptake. Larynx: No abnormal uptake. Thyroid: Multiple non FDG avid thyroid nodules measuring up to 1.4 cm on the left redemonstrated. Lungs, pleura and trachea: No abnormal uptake. Bilateral subsegmental atelectasis and/or scarring. No consolidation, mass, or pleural effusion. Heart: Normal physiologic uptake. Coronary arteries: Mild coronary artery calcification. Mediastinal space: No abnormal uptake. Liver: No abnormal uptake. Gallbladder and biliary ducts: No abnormal uptake. Borderline common duct dilatation. Pancreas: No abnormal uptake. Non FDG avid 1.7 cm pancreatic head hypodensity redemonstrated. Spleen: No abnormal uptake. Adrenal glands: No abnormal uptake. Kidneys and ureters: Normal physiologic uptake. Stomach and bowel: No abnormal uptake. Partial right colectomy. FDG uptake along the underdistended transverse colon without underlying CT abnormality may be physiologic. Query metformin use. Reproductive: The uterus is surgically absent. Vasculature: No abnormal uptake. Mild systemic atherosclerotic calcification without aortic aneurysm. Lymph nodes: As on recent comparison CT, retroperitoneal lymphadenopathy is increased from 2022 with index left para-aortic node measuring 1.5 cm in the short axis on axial image 146 of series 3, 1.4 cm earlier this month and 0.9 cm in January 2023, and shows low-level FDG uptake with SUV max of 3.0. Adjacent enlarged node shows SUV max of 2.5 on axial image 148 of series 3. Remaining enlarged lymph nodes are non FDG avid. Skeleton: No abnormal uptake in the visualized axial and appendicular skeleton. Degenerative change along the spine, shoulders and hips. Soft tissues: No abnormal uptake in the visualized head, neck, chest, abdomen, pelvis, and extremities. Rectus diastasis. PET/PET skull to thigh INIT [id number] IMPRESSION: 1. Increased size of retroperitoneal lymphadenopathy with low-level FDG uptake concerning for metastatic disease. 2. Moderate FDG uptake along the underdistended transverse colon may be physiologic. Query metformin use. 3. Non FDG avid 1.7 cm pancreatic head hypodensity warrants further evaluation with pancreatic MRI/MRCP.
== END 2024-05-19 13:01 | disposition home or self-care (01) ==
PROVIDERS: PCP Electrodiagnostic Medicine; Visit Provider Internal Medicine
DX: C18.2 Malignant neoplasm of ascending colon (principal); R93.89 Abnormal findings on diagnostic imaging of other specified body structures; K68.9 Other disorders of retroperitoneum; E04.2 Nontoxic multinodular goiter; J98.11 Atelectasis; Z90.49 Acquired absence of other specified parts of digestive tract
CPT/HCPCS: 78815; A9552

== ENCOUNTER 2024-06-10 14:08 | Oncology outpatient (recurring) (ONCR) | payer MEDICARE, SELFPAY ==
[2024-06-10 14:46] LABS: Basophils % 0.5 %; Eosinophils # 0.2 10^3/uL (0.0-0.8); Hematocrit 41.4 % (36-47); Lymphocytes # 2.1 10^3/uL (0.8-4.8); Lymphocytes % 27.1 %; Mean Corpuscular HGB Conc 32.9 g/dL (30-55); Mean Corpuscular Volume 91.4 fl (85-98); Mean Platelet Volume 10.3 fL (7.4-10.4); Monocytes # 0.4 10^3/uL (0.2-0.9); Monocytes % 4.9 %; Neutrophils % 64.8 %; Nucleated Red Blood Cells % 0 %; Platelet Count 215 10^3/cmm (157-399); Red Blood Count 4.53 10^6/uL (3.85-5.65); Red Cell Distribution Width 12.8 % (12.1-15.1); White Blood Count 7.56 10^3/uL (3.29-11.43)
[2024-06-10 15:12] LABS: Carcinoembryonic Antigen 1.5 ng/mL (0.0-4.7)
[2024-06-10 15:25] LABS: Alanine Aminotransferase 17 U/L (0-33); Albumin Level 3.8 g/dL (3.5-5.2); Alkaline Phosphatase 160 U/L (35-105); Anion Gap 17.5 (5-19); Aspartate Amino Transferase 23 U/L (0-32); Blood Urea Nitrogen 22 mg/dL (8-23); Carbon Dioxide 23 mmol/L (22-29); Chloride 104 mmol/L (98-107); Globulin 3.8 g/dL (1.3-4.6); Glucose 94 mg/dL (65-115); Osmolality Calculated 293 mOsm/kg (285-295); Potassium 4.5 mmol/L (3.5-5.1); Sodium 140 mmol/L (136-145); Total Bilirubin 0.8 mg/dL (0.15-1.2); Total Protein 7.6 g/dL (6.6-8.7)
== END 2024-06-24 23:59 | disposition home or self-care (01) ==
PROVIDERS: PCP Electrodiagnostic Medicine; Visit Provider Internal Medicine Medical Oncology
DX: C18.2 Malignant neoplasm of ascending colon (principal); E01.0 Iodine-deficiency related diffuse (endemic) goiter; Z79.899 Other long term (current) drug therapy
CPT/HCPCS: 36415; 80053; 82378; 85025; 99214

== ENCOUNTER 2024-09-07 12:30 | Oncology outpatient (recurring) (ONCR) | payer MEDICARE, SELFPAY ==
[2024-09-04] MEDS: iohexol 350 mg/mL 500 mL Btl (per mL) IV (11:57)
[2024-09-04] MEDS: iohexol 350 mg/mL 500 mL Btl (per mL) PO (11:58)
--- NOTE | 2024-09-04 12:00 | CTR_ITS ---
PROCEDURE INFORMATION: Exam: CT Abdomen And Pelvis With Contrast Exam date and time: 09/04/2024 12:49 PM Age: 79 years old Clinical indication: Condition or disease; Cancer; Prior surgery; Surgery date: 6+ months; Surgery type: Partial colon resection; Additional info: Colon cancer TECHNIQUE: Imaging protocol: Computed tomography of the abdomen and pelvis with contrast. Radiation optimization: All CT scans at this facility use at least one of these dose optimization techniques: automated exposure control; mA and/or kV adjustment per patient size (includes targeted exams where dose is matched to clinical indication); or iterative reconstruction. 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 Liver: Moderately fatty nonenlarged liver. Gallbladder and biliary ducts: Dilated common bile duct measuring at least 15 mm. Pancreas: Normal. No ductal dilation. Spleen: Normal. No splenomegaly. Adrenal glands: Normal. No mass. Kidneys and ureters: Normal. No hydronephrosis. Stomach and bowel: Partial right colectomy. Diverticulosis. No evidence of acute diverticulitis. Appendix: No evidence of appendicitis. Intraperitoneal space: Unremarkable. No free air. No significant fluid collection. Vasculature: Unremarkable. No abdominal aortic aneurysm. Lymph nodes: Numerous retroperitoneal lymph nodes are identified. The largest lymph node is at the 2 o'clock position by the aorta the level of the kidneys today measuring 17 x 19 mm while on the PET scan it was the same. Other enlarged lymph nodes are identified but these are the same size as well. Given they are increased in size presumably this is due to chandler metastatic disease. Urinary bladder: Unremarkable as visualized. Reproductive: Post hysterectomy. Bones/joints: Spinal arthritis. Soft tissues: Unremarkable. CT/CT abdomen pelvis w con* [id number] IMPRESSION: 1. Stable metastatic disease to the retroperitoneal enlarged lymph nodes. 2. Biliary dilatation of unknown etiology. Consider MRI/MRCP. 3. Diverticulosis.
[2024-09-04 13:17] LABS: Blood Urea Nitrogen 23 mg/dL (8-23)
[2024-09-07 12:24] LABS: Basophils % 0.4 %; Eosinophils # 0.1 10^3/uL (0.0-0.8); Eosinophils % 0.8 %; Hematocrit 42.4 % (36-47); Lymphocytes # 1.5 10^3/uL (0.8-4.8); Lymphocytes % 20.4 %; Mean Corpuscular HGB Conc 32.8 g/dL (30-55); Mean Corpuscular Hemoglobin 29.7 pg (27-33); Mean Corpuscular Volume 90.6 fl (85-98); Mean Platelet Volume 10.1 fL (7.4-10.4); Monocytes # 0.4 10^3/uL (0.2-0.9); Monocytes % 4.9 %; Neutrophils # 5.43 10^3/uL (1.8-7.7); Neutrophils % 73.2 %; Nucleated Red Blood Cells % 0 %; Platelet Count 219 10^3/cmm (157-399); Red Blood Count 4.68 10^6/uL (3.85-5.65); Red Cell Distribution Width 12.9 % (12.1-15.1); White Blood Count 7.41 10^3/uL (3.29-11.43)
[2024-09-07 12:50] LABS: Carcinoembryonic Antigen 1.7 ng/mL (0.0-4.7)
[2024-09-07 13:02] LABS: Alanine Aminotransferase 20 U/L (0-33); Albumin Level 3.9 g/dL (3.5-5.2); Alkaline Phosphatase 170 U/L (35-105); Anion Gap 13.5 (5-19); Aspartate Amino Transferase 31 U/L (0-32); Blood Urea Nitrogen 24 mg/dL (8-23); Calcium 8.5 mg/dL (8.5-10.5); Carbon Dioxide 25 mmol/L (22-29); Chloride 107 mmol/L (98-107); Creatinine Clr Calc Pharmacy 48.4695; Globulin 3.5 g/dL (1.3-4.6); Glucose 107 mg/dL (65-115); Lactate Dehydrogenase 228 U/L (135-214); Osmolality Calculated 297 mOsm/kg (285-295); Potassium 4.5 mmol/L (3.5-5.1); Sodium 141 mmol/L (136-145); Total Bilirubin 0.9 mg/dL (0.15-1.2); Total Protein 7.4 g/dL (6.6-8.7)
== END 2024-09-24 23:59 | disposition home or self-care (01) ==
PROVIDERS: PCP Electrodiagnostic Medicine; Visit Provider Internal Medicine Medical Oncology
DX: Z53.9 Procedure and treatment not carried out, unspecified reason (principal); C18.2 Malignant neoplasm of ascending colon; E01.0 Iodine-deficiency related diffuse (endemic) goiter; Z79.899 Other long term (current) drug therapy
CPT/HCPCS: 36415; 74177; 80053; 82378; 82565; 83615; 84520; 85025; 99214

== ENCOUNTER → 2025-01-25 14:31 | Outpatient (BNVA) | payer MEDICARE, SELFPAY | PROVIDERS: PCP Electrodiagnostic Medicine; Referring Provider Electrodiagnostic Medicine; Visit Provider Nurse Practitioner Family | DX: L23.9 Allergic contact dermatitis, unspecified cause (principal); L81.4 Other melanin hyperpigmentation; D18.01 Hemangioma of skin and subcutaneous tissue; D48.5 Neoplasm of uncertain behavior of skin; L82.0 Inflamed seborrheic keratosis; R58 Hemorrhage, not elsewhere classified | CPT/HCPCS: 11104; 17110; 99204 ==

== ENCOUNTER → 2025-02-02 12:56 | Outpatient (BNVA) | payer MEDICARE, SELFPAY | PROVIDERS: PCP Electrodiagnostic Medicine; Visit Provider Nurse Practitioner Family | DX: L72.0 Epidermal cyst (principal); L23.9 Allergic contact dermatitis, unspecified cause | CPT/HCPCS: 99214 ==

== ENCOUNTER 2025-02-03 12:30 | Oncology outpatient (recurring) (ONCR) | payer MEDICARE, SELFPAY ==
--- NOTE | 2025-01-27 12:00 | CT_ITS ---
WS: [id number] CT ABDOMEN AND PELVIS WITH CONTRAST HISTORY: Follow-up colon cancer. TECHNIQUE: Imaging performed of the abdomen and pelvis with IV contrast. Single phase imaging of the abdomen. Coronal and sagittal reformats are submitted. All CT scans at [facility] use at least one of these dose optimization techniques: automated exposure control; mA and/or kV adjustment per patient size (includes targeted exams where dose is matched to clinical indication); or iterative reconstruction. IV CONTRAST: Omnipaque 350; 100 mL IV. Oral contrast: Yes. DLP: 587.48 mGy.cm COMPARISON: 09/04/2024, PET/CT 05/19/2024 Lower thorax: Subsegmental atelectasis at the anterior RIGHT lung base. No pulmonary mass or nodule. Heart is normal size. Small hiatal hernia. Liver/biliary system: Normal size with no intrahepatic dilatation. Gallbladder: Gallbladder is slightly contracted. Pancreas: Reidentified is a low-attenuation mass in the pancreatic head measuring 2.0 x 2.1 cm. This mass has been previously described and was non-FDG avid. The common bile duct is mildly prominent but appropriate for the cholecystectomy. Pancreatic duct is not dilated. Spleen: Normal size spleen. No mass or infarct. Adrenal glands: Normal. Right kidney: Normal. Left kidney: Normal. Aorta: Mild atherosclerosis. Mesenteric arteries are well enhancing. Lymphadenopathy: Retroperitoneal lymphadenopathy is reidentified. Beginning at the level of the renal artery and vein retroperitoneal nodes are identified. Largest lymph node measures 2.1 cm in transverse diameter. There are several lymph nodes that are similar size and just slightly smaller. The lymph nodes have not improved in size. There may be slight increase in size of some of the lymph nodes which may not be a significant increase. Small lymph nodes extend along the iliac arteries. No inguinal adenopathy. Free fluid: None. GI tract: Stomach is distended with oral contrast. There is mild wall thickening involving the cardia of the stomach but similar to the prior study and negative on PET/CT. No GI tract obstruction. Mild distal colonic diverticulosis. Abdominal wall: Diastases rectus. Pelvis: Prior hysterectomy. Urinary bladder is negative. Bones: Degenerative scoliosis. No fractures or destructive bone lesions. CT/CT abdomen pelvis w con* [id number] IMPRESSION: 1. Retroperitoneal lymphadenopathy with minimal and probably not significant p rogression in size since 09/04/2024. Largest lymph node measures 2.1 cm. 2. No ascites. 3. No metastatic disease to the liver or adrenal glands. 4. Stable nonenhancing low-attenuation mass in the pancreatic head since 024. Described on PET/CT as not FDG avid.
[2025-01-27] MEDS: iohexol 350 mg/mL 500 mL Btl (per mL) PO (12:37)
[2025-01-27 12:59] LABS: Blood Urea Nitrogen 22 mg/dL (8-23)
[2025-01-27] MEDS: iohexol 350 mg/mL 500 mL Btl (per mL) IV (13:06)
[2025-02-03 12:41] LABS: Basophils # 0.1 10^3/uL (0.0-0.1); Basophils % 0.7 %; Eosinophils # 0.1 10^3/uL (0.0-0.8); Eosinophils % 1.3 %; Hematocrit 41.8 % (36-47); Lymphocytes # 1.5 10^3/uL (0.8-4.8); Lymphocytes % 21.1 %; Mean Corpuscular HGB Conc 32.8 g/dL (30-55); Mean Corpuscular Hemoglobin 29.6 pg (27-33); Mean Corpuscular Volume 90.3 fl (85-98); Mean Platelet Volume 10.1 fL (7.4-10.4); Monocytes # 0.4 10^3/uL (0.2-0.9); Monocytes % 5.8 %; Neutrophils # 4.97 10^3/uL (1.8-7.7); Neutrophils % 70.7 %; Nucleated Red Blood Cells % 0 %; Platelet Count 224 10^3/cmm (157-399); Red Blood Count 4.63 10^6/uL (3.85-5.65); Red Cell Distribution Width 13.4 % (12.1-15.1); White Blood Count 7.03 10^3/uL (3.29-11.43)
[2025-02-03 13:07] LABS: Carcinoembryonic Antigen 1.4 ng/mL (0.0-4.7)
[2025-02-03 13:18] LABS: Alanine Aminotransferase 16 U/L (0-33); Albumin Level 3.9 g/dL (3.5-5.2); Alkaline Phosphatase 155 U/L (35-105); Anion Gap 14.4 (5-19); Aspartate Amino Transferase 25 U/L (0-32); Blood Urea Nitrogen 22 mg/dL (8-23); Calcium 9.2 mg/dL (8.5-10.5); Carbon Dioxide 26 mmol/L (22-29); Chloride 106 mmol/L (98-107); Glucose 103 mg/dL (65-115); Lactate Dehydrogenase 230 U/L (135-214); Osmolality Calculated 298 mOsm/kg (285-295); Potassium 4.4 mmol/L (3.5-5.1); Sodium 142 mmol/L (136-145); Total Bilirubin 0.8 mg/dL (0.15-1.2); Total Protein 7.9 g/dL (6.6-8.7)
== END 2025-02-22 23:59 | disposition home or self-care (01) ==
PROVIDERS: Nurse Practitioner Family; PCP Electrodiagnostic Medicine; Visit Provider Internal Medicine
DX: Z53.9 Procedure and treatment not carried out, unspecified reason (principal); Z08 Encounter for follow-up examination after completed treatment for malignant neoplasm; Z85.038 Personal history of other malignant neoplasm of large intestine; Z90.49 Acquired absence of other specified parts of digestive tract; R59.0 Localized enlarged lymph nodes; D49.0 Neoplasm of unspecified behavior of digestive system
CPT/HCPCS: 36415; 74177; 80053; 82378; 82565; 83615; 84520; 85025; 99213

== ENCOUNTER 2025-05-03 12:28 | Oncology outpatient (recurring) (ONCR) | payer MEDICARE, SELFPAY ==
[2025-05-03 12:56] LABS: Basophils # 0.1 10^3/uL (0.0-0.1); Basophils % 0.6 %; Eosinophils # 0.1 10^3/uL (0.0-0.8); Eosinophils % 0.7 %; Erythrocyte Sedimentation Rate 37 mm/hr (0-15); Hematocrit 43.6 % (36-47); Lymphocytes # 1.6 10^3/uL (0.8-4.8); Lymphocytes % 18.6 %; Mean Corpuscular HGB Conc 32.3 g/dL (30-55); Mean Corpuscular Hemoglobin 29.3 pg (27-33); Mean Corpuscular Volume 90.6 fl (85-98); Mean Platelet Volume 10.2 fL (7.4-10.4); Monocytes # 0.3 10^3/uL (0.2-0.9); Neutrophils # 6.49 10^3/uL (1.8-7.7); Neutrophils % 75.6 %; Nucleated Red Blood Cells % 0 %; Platelet Count 224 10^3/cmm (157-399); Red Blood Count 4.81 10^6/uL (3.85-5.65); Red Cell Distribution Width 13.2 % (12.1-15.1); White Blood Count 8.57 10^3/uL (3.29-11.43)
[2025-05-03 13:19] LABS: Alanine Aminotransferase 15 U/L (0-33); Albumin Level 4.1 g/dL (3.5-5.2); Alkaline Phosphatase 151 U/L (35-105); Anion Gap 17.8 (5-19); Aspartate Amino Transferase 26 U/L (0-32); Blood Urea Nitrogen 23 mg/dL (8-23); C Reactive Protein 7.1 mg/L (0.0-4.9); Calcium 9.1 mg/dL (8.5-10.5); Carbon Dioxide 23 mmol/L (22-29); Chloride 108 mmol/L (98-107); Glucose 99 mg/dL (65-115); Osmolality Calculated 302 mOsm/kg (285-295); Potassium 4.8 mmol/L (3.5-5.1); Sodium 144 mmol/L (136-145); Total Bilirubin 0.9 mg/dL (0.15-1.2); Total Protein 8.1 g/dL (6.6-8.7)
[2025-05-03 13:35] LABS: Lactate Dehydrogenase 234 U/L (135-214)
[2025-05-03 13:48] LABS: Carcinoembryonic Antigen 1.4 ng/mL (0.0-4.7)
[2025-05-04 07:33] LABS: Beta-2-Microglobulin 2.85 mg/L (< OR = 2.51)
== END 2025-05-24 23:59 | disposition home or self-care (01) ==
PROVIDERS: PCP Electrodiagnostic Medicine; Visit Provider Internal Medicine
DX: Z53.9 Procedure and treatment not carried out, unspecified reason (principal); Z08 Encounter for follow-up examination after completed treatment for malignant neoplasm; Z85.038 Personal history of other malignant neoplasm of large intestine; Z90.49 Acquired absence of other specified parts of digestive tract; R59.0 Localized enlarged lymph nodes; D49.0 Neoplasm of unspecified behavior of digestive system; C18.2 Malignant neoplasm of ascending colon; E01.0 Iodine-deficiency related diffuse (endemic) goiter; Z79.899 Other long term (current) drug therapy; C78.6 Secondary malignant neoplasm of retroperitoneum and peritoneum; K57.90 Diverticulosis of intestine, part unspecified, without perforation or abscess without bleeding; K83.8 Other specified diseases of biliary tract
CPT/HCPCS: 36415; 80053; 82232; 82378; 83615; 85025; 85651; 86140; 99214

== ENCOUNTER 2025-08-04 13:15 | Oncology outpatient (recurring) (ONCR) | payer MEDICARE, SELFPAY ==
--- NOTE | 2025-07-27 13:55 | CT_ITS ---
WS: [id number] CT NECK TECHNIQUE: Contrast-enhanced CT of the neck with coronal and sagittal reformatted images. CLINICAL INFORMATION: malignant neoplasm COMPARISON: None. DLP: 164.[address] scans at [facility] use at least one of these dose optimization techniques: automated exposure control; mA and/or kV adjustment per patient size (includes targeted exams where dose is matched to clinical indication); or iterative reconstruction. FINDINGS: Paranasal sinuses and mastoid air cells are well aerated. Normal posterior nasopharynx. Normal parapharyngeal fat. Dental artifact degrades some images at the tongue base. Normal parotid glands and submandibular glands. No evidence of supraglottic or glottic mass. Normal subglottic airway. Multinodular thyroid. Dominant nodule lower pole LEFT thyroid measuring 1.8 x 1.7 cm No cervical lymphadenopathy. Prominent LEFT jugulodigastric lymph node within normal limits. Prominent anterior hypertrophic changes cervical spine. Numerous posterior triangle lymph nodes in the lower neck most within normal limits. A few enhancing slightly enlarged LEFT lower neck lymph nodes measuring [address]/CT neck w con* [id number] IMPRESSION: 1. Few prominent enhancing LEFT supraclavicular lymph nodes measuring up to 10 mm nonspecific but metastatic disease not entirely excluded 2. Multinodular thyroid described above. 3. Normal salivary glands. 4. No other acute findings.
--- NOTE | 2025-07-27 14:00 | CTR_ITS ---
PROCEDURE INFORMATION: Exam: CT Chest With Contrast; Diagnostic Exam date and time: 07/27/2025 3:09 PM Age: 80 years old Clinical indication: Condition or disease; Cancer; Other: Malignant neoplasm of ascending colon; Prior surgery; Surgery date: 6+ months; Surgery type: Colon, hyst, back, gb TECHNIQUE: Imaging protocol: Diagnostic computed tomography of the chest with contrast. Radiation optimization: All CT scans at this facility use at least one of these dose optimization techniques: automated exposure control; mA and/or kV adjustment per patient size (includes targeted exams where dose is matched to clinical indication); or iterative reconstruction. Contrast material: OMNI 350; Contrast volume: 100 ml; Contrast route: INTRAVENOUS (IV); COMPARISON: 1. PT PET skull to thigh INIT [id number] 05/19/2024 1:[address] chest wo con [id number] 04/26/2023 4:49 PM RADIATION DOSE METRICS: Total DLP (mGy-cm): 924.13 FINDINGS: Thyroid: Mildly enlarged thyroid with diffuse heterogeneity. Multiple bilateral nodules measuring up to 1.5 cm on the left and 1.1 cm on the right. Appearance is overall similar to prior. Lungs: Chronic mild bibasilar atelectasis/scarring. Subpleural reticular opacities in the lingula also likely represent atelectasis/scarring. No focal consolidation. No new or enlarging pulmonary nodules. Pleural spaces: Unremarkable. No pneumothorax. No pleural effusion. Heart: Unremarkable. No cardiomegaly. No pericardial effusion. Lymph nodes: Unremarkable. No enlarged lymph nodes. Vasculature: Unremarkable. No aortic aneurysm. Diaphragm: Small sliding-type hiatal hernia. Bones/joints: Multilevel flowing anterior osteophytes compatible with diffuse idiopathic skeletal hyperostosis (DISH). Multilevel degenerative changes of the thoracic spine. No acute or aggressive osseous lesion. Soft tissues: Unremarkable. PROCEDURE INFORMATION: Exam: CT Abdomen And Pelvis With Contrast Exam date and time: 07/27/2025 3:09 PM Age: 80 years old Clinical indication: Condition or disease; Cancer; Other: Malignant neoplasm of ascending colon; Prior surgery; Surgery date: 6+ months; Surgery type: Colon, hyst, back, gb TECHNIQUE: Imaging protocol: Computed tomography of the abdomen and pelvis with contrast. Radiation optimization: All CT scans at this facility use at least one of these dose optimization techniques: automated exposure control; mA and/or kV adjustment per patient size (includes targeted exams where dose is matched to clinical indication); or iterative reconstruction. Contrast material: OMNI 350; Contrast volume: 100 ml; Contrast route: INTRAVENOUS (IV); COMPARISON: 1. CT abdomen pelvis w con* [id number] 01/27/2025 12:59 PM 2. PT PET skull to thigh INIT [id number] 05/19/2024 1:30 PM RADIATION DOSE METRICS: Total DLP (mGy-cm): 924.13 FINDINGS: Liver: Normal. No mass. Gallbladder and biliary ducts: Status post cholecystectomy. Pancreas: Redemonstrated hypodense mass in the pancreatic head measuring about 2.1 x 1.7 cm, not significantly changed from prior. This appears grossly unchanged since at least 04/30/2024 and was non hypermetabolic on prior PET-CT. Spleen: Normal. No splenomegaly. Adrenal glands: Normal. No mass. Kidneys and ureters: Normal. No hydronephrosis. Stomach and bowel: Sigmoid diverticulosis without evidence of acute diverticulitis. No evidence of bowel obstruction. Appendix: No evidence of appendicitis. Intraperitoneal space: Unremarkable. No free air. No significant fluid collection. Vasculature: Mild atherosclerotic aortoiliac calcifications. No abdominal aortic aneurysm. Lymph nodes: Ongoing retroperitoneal lymphadenopathy, not significantly changed from prior. Dominant left para-aortic node just below the renal artery origin measures 2.3 x 2.2 cm, previously 2.2 x 2.1 cm. Multiple additional enlarged retroperitoneal nodes also appears similar. Urinary bladder: Unremarkable as visualized. Reproductive: Status post hysterectomy. No suspicious adnexal mass. Bones/joints: Unremarkable. No acute fracture. Soft tissues: Anterior abdominal wall midline incision/scarring. CT/CT chest abdpel w/*[id number] IMPRESSION: 1. No acute findings in the chest. 2. Stable appearance of the thyroid with multiple bilateral nodules and diffuse heterogeneity. If not performed previously, nonemergent thyroid ultrasound could be considered for further evaluation. IMPRESSION: 1. No acute findings in the abdomen/pelvis. 2. Similar retroperitoneal lymphadenopathy, compatible with metastases. 3. Stable hypodense lesion in the pancreatic head. Recommend continued attention on follow-up. EUS-guided FNA could also be considered for further evaluation. 4. Sigmoid diverticulosis without diverticulitis.
[2025-07-27] MEDS: iohexol 350 mg/mL 500 mL Btl (per mL) PO (14:53)
[2025-07-27 15:04] LABS: Blood Urea Nitrogen 19 mg/dL (8-23)
[2025-07-27] MEDS: iohexol 350 mg/mL 500 mL Btl (per mL) IV ×2 (15:20→15:21)
[2025-08-04 13:26] LABS: Hematocrit 42.6 % (36-47); Hemoglobin 13.90 g/dL (11.27-16.99); Mean Corpuscular HGB Conc 32.6 g/dL (30-55); Mean Corpuscular Hemoglobin 29.4 pg (27-33); Mean Corpuscular Volume 90.3 fl (85-98); Nucleated Red Blood Cells % 0 %; Platelet Count 223 10^3/cmm (157-399); Red Blood Count 4.72 10^6/uL (3.85-5.65); White Blood Count 7.48 10^3/uL (3.29-11.43)
[2025-08-04 13:49] LABS: Carcinoembryonic Antigen 1.3 ng/mL (0.0-4.7)
[2025-08-04 14:05] LABS: Alanine Aminotransferase 12 U/L (0-33); Albumin Level 4.1 g/dL (3.5-5.2); Alkaline Phosphatase 150 U/L (35-105); Anion Gap 17.2 (5-19); Aspartate Amino Transferase 21 U/L (0-32); Blood Urea Nitrogen 18 mg/dL (8-23); Calcium 9.0 mg/dL (8.5-10.5); Carbon Dioxide 22 mmol/L (22-29); Chloride 105 mmol/L (98-107); Globulin 3.9 g/dL (1.3-4.6); Glucose 99 mg/dL (65-115); Osmolality Calculated 292 mOsm/kg (285-295); Potassium 4.2 mmol/L (3.5-5.1); Sodium 140 mmol/L (136-145); Total Protein 8.0 g/dL (6.6-8.7)
== END 2025-08-24 23:59 | disposition home or self-care (01) ==
PROVIDERS: Internal Medicine Medical Oncology; PCP Electrodiagnostic Medicine; Visit Provider Internal Medicine
DX: Z53.9 Procedure and treatment not carried out, unspecified reason; Z08 Encounter for follow-up examination after completed treatment for malignant neoplasm; Z85.038 Personal history of other malignant neoplasm of large intestine; Z90.49 Acquired absence of other specified parts of digestive tract; R19.02 Left upper quadrant abdominal swelling, mass and lump
CPT/HCPCS: 36415; 70491; 71260; 74177; 80053; 82232; 82378; 82565; 83615; 84520; 85025; 85651; 86140; 99213

== ENCOUNTER 2025-10-26 13:37 | Outpatient (CLI) | payer MEDICARE, SELFPAY ==
--- NOTE | 2025-10-26 13:45 | MR_ITS ---
WS: [id number] MRI ABDOMEN WITH AND WITHOUT CONTRAST. COMPARISON: 07/27/2025, 01/27/2025 Multiplanar, multisequence imaging is performed with and without contrast. Sagittal and axial T1 fat sat sequences post-MultiHance 18 cc IV. History: Malignant neoplasm of ascending colon. Prior hemicolectomy. Normal size liver. No enhancing masses or metastatic disease. Normal portal vein. Cholelithiasis without acute cholecystitis. Normal size common bile duct. Reidentified is the slightly loculated cystic mass in the pancreatic head measuring 1.8 cm which is noted to be negative on PET/CT. No pancreatic duct dilatation. Normal spleen. No adrenal mass. No renal obstruction or mass. Normal size aorta. No ascites. There are a few small lymph nodes which are stable by CT. The largest lymph node 1.3 cm is precaval. Mild diastases recti and small umbilical hernia. No GI tract obstruction. MR/MR abdomen wo/w con* [id number] IMPRESSION: 1. No metastatic disease to the liver or adrenal glands. 2. Stable FDG nonavid avid cystic mass in the pancreatic head at 1.8 cm. 3. Cholelithiasis without acute cholecystitis. 4. Stable precaval 1.3 cm lymph node. No enlarging lymph nodes.
[2025-10-26] MEDS: gadobenate dimeglumine 20 mL vial 18 ML IV (14:35)
== END 2025-10-26 13:38 | disposition home or self-care (01) ==
LOC: RAD 13:43
PROVIDERS: PCP Electrodiagnostic Medicine; Visit Provider Internal Medicine
DX: C18.2 Malignant neoplasm of ascending colon (principal); K86.2 Cyst of pancreas; K80.20 Calculus of gallbladder without cholecystitis without obstruction; R59.0 Localized enlarged lymph nodes
CPT/HCPCS: 74183; A9577

== ENCOUNTER 2025-10-27 13:21 | Outpatient (CLI) | payer MEDICARE, SELFPAY ==
--- NOTE | 2025-10-27 13:45 | MR_ITS ---
WS: [id number] MRI PELVIS WITH AND WITHOUT CONTRAST. COMPARISON: CT 01/27/2025 Multiplanar, multisequence imaging is performed with and without contrast. No ascites. Patient has known retroperitoneal lymph nodes that have been previously described. These lymph nodes were noted on CTs of 01/27/2025 and 07/27/2025. Largest lymph node is LEFT retroperitoneal below the level of the renal veins measuring 2.3 cm. There are several enlarged lymph nodes in the retr operitoneum and aortocaval. Proximal RIGHT iliac artery lymph node has also increased in size now measuring 1.5 cm as compared to 1.2 cm on 07/27/2025. LEFT iliac lymph node measures 1.6 x 2.8 cm and as increased in size also. No GI tract obstruction. No enhancing colonic lesions are identified. Umbilical hernia with diastases rectus of the anterior abdominal wall. No strangulated bowel. Well distended urinary bladder. Prior hysterectomy. Bilateral trochanteric bursitis involving the hips, RIGHT greater than LEFT. MR/MR pelvis wo/w con [id number] IMPRESSION: 1. Retroperitoneal and iliac chain lymphadenopathy. Lymph nodes continue to in crease in size since 07/27/2025 and more significantly as compared to 01/27/2025. S uspicious for recurrent metastasis. Largest lymph node LEFT iliac chain 1.6 x 2 .8 cm. The largest retroperitoneal lymph node is 2.3 cm in largest diameter on the LEFT. 2. No ascites. 3. No GI tract obstruction. 4. Prior hysterectomy.
[2025-10-27] MEDS: gadobenate dimeglumine 20 mL vial 18 ML IV (14:36)
== END 2025-10-27 13:22 | disposition home or self-care (01) ==
PROVIDERS: PCP Electrodiagnostic Medicine; Visit Provider Internal Medicine
DX: C18.2 Malignant neoplasm of ascending colon (principal); C77.5 Secondary and unspecified malignant neoplasm of intrapelvic lymph nodes; R59.0 Localized enlarged lymph nodes; Z90.710 Acquired absence of both cervix and uterus; K42.9 Umbilical hernia without obstruction or gangrene
CPT/HCPCS: 72197

== ENCOUNTER 2025-11-10 12:48 | Oncology outpatient (recurring) (ONCR) | payer MEDICARE, SELFPAY ==
[2025-11-10 13:13] LABS: Hematocrit 40.6 % (36-47); Hemoglobin 13.50 g/dL (11.27-16.99); Mean Corpuscular HGB Conc 33.3 g/dL (30-55); Mean Corpuscular Hemoglobin 30.3 pg (27-33); Mean Corpuscular Volume 91.2 fl (85-98); Nucleated Red Blood Cells % 0 %; Platelet Count 186 10^3/cmm (157-399); Red Blood Count 4.45 10^6/uL (3.85-5.65); White Blood Count 6.74 10^3/uL (3.29-11.43)
[2025-11-10 13:37] LABS: Alanine Aminotransferase 15 U/L (0-33); Albumin Level 4.0 g/dL (3.5-5.2); Alkaline Phosphatase 152 U/L (35-105); Anion Gap 14.4 (5-19); Aspartate Amino Transferase 23 U/L (0-32); Blood Urea Nitrogen 24 mg/dL (8-23); Calcium 9.2 mg/dL (8.5-10.5); Carbon Dioxide 26 mmol/L (22-29); Chloride 104 mmol/L (98-107); Creatinine Clr Calc Pharmacy 44.1677; Globulin 3.3 g/dL (1.3-4.6); Glucose 94 mg/dL (65-115); Osmolality Calculated 294 mOsm/kg (285-295); Potassium 4.4 mmol/L (3.5-5.1); Sodium 140 mmol/L (136-145); Total Protein 7.3 g/dL (6.6-8.7); Uric Acid 7.3 mg/dL (2.4-5.7)
[2025-11-10 14:26] LABS: Ferritin 100 ng/mL (15-150); Iron 90 ug/dL (37-145); Total Iron Binding Capacity 335 mcg/dl; Unsaturated Iron Binding 245 ug/dL (112-347)
[2025-11-10 14:41] LABS: Vitamin B12 488 pg/mL (232-1245)
[2025-11-11 03:28] LABS: PROTEIN, TOTAL 7.3 g/dL (6.1-8.1)
[2025-11-11 20:55] LABS: ALPHA 1 GLOBULIN 0.3 g/dL (0.2-0.3); ALPHA 2 GLOBULIN 0.7 g/dL (0.5-0.9); BETA 1 GLOBULIN 0.5 g/dL (0.4-0.6); BETA 2 GLOBULIN 0.4 g/dL (0.2-0.5)
== END 2025-11-24 23:59 | disposition home or self-care (01) ==
PROVIDERS: PCP Electrodiagnostic Medicine; Visit Provider Internal Medicine
DX: C18.2 Malignant neoplasm of ascending colon (principal); Z90.49 Acquired absence of other specified parts of digestive tract; K86.89 Other specified diseases of pancreas
CPT/HCPCS: 80053; 82232; 82607; 82728; 82784; 83010; 83540; 83550; 83615; 84155; 84165; 84550; 85025; 85651; 86334; 99213